=== PATIENT | male | born 1980 | race Caucasian/White ===

== ENCOUNTER 2023-09-20 17:30 | Emergency (ER) | payer SELFPAY ==
[~2023-09-20] VITALS: Ht 175.3 cm; Wt 95.0 kg
[2023-09-20 17:34] VITALS: BP 109/63; PULSE 96; RESP 16; TEMP 98.2; O2SAT 96
== END 2023-09-20 20:47 | disposition left against medical advice (07) ==
LOC: ER 17:30
DX: F10.129 Alcohol abuse with intoxication, unspecified (principal); Y90.9 Presence of alcohol in blood, level not specified
CPT/HCPCS: 99283